=== PATIENT | female | born 1995 | race Caucasian/White ===

== ENCOUNTER → 2024-10-05 12:14 | Emergency (ER) | payer SELFPAY ==
[2024-10-05 12:17] VITALS: BP 143/102
--- NOTE | 2024-10-05 12:18 | ED.GENMED ---
ED Provider Triage
<Lori Lucas [employer] - Last Filed: 10/05/24 12:36>
-
Attestation: A medical screening examination has been initiated by a qualified medical provider. Based on the assessment performed at this time, it has been determined that an emergent medical condition may exist and the patient has been informed
that further medical evaluation and possible additional diagnostic testing may be needed.
HPI: 29-year-old female here for hoarse voice, diarrhea once last night, cough, 'some' shortness of breath and 'tightness' of chest off and on. 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
States she inhaled after Saturday when she was compounding, she developed hoarse voice
Denies tightness in chest at this time.
GENERAL: Alert , in no apparent distress
EYE: No visual abnormalities.
NECK: Trachea midline
ENT: No visible abnormalities., Pharynx normal, voice hoarse
LUNGS: No acute respiratory distress
NEUROLOGICAL: Alert and oriented
SKIN: Skin intact. No visible changes.
MUSCULOSKELETAL: Moving extremities normally
PSYCH: Normal and appropriate interaction.
This is a medical evaluation conducted in person to initiate diagnostic evaluation and provide initial therapeutics. Please see further documentation by the treating clinician.
History of Present Illness
<Lori Lucas [employer] - Last Filed: 10/05/24 12:36>
General
Chief Complaint: Breathing Problem
Time Seen by Provider: 10/05/24 12:17
<Kianna Naranjo DO - Last Filed: 10/05/24 14:19>
History of Present Illness
History of Present Illness:
29-year-old female without significant past medical history presenting for lung irritation and cough. 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 About 5 days ago, she was mixing a powder and
accidentally inhaled some of it. She is unsure with the powder contained, however since this incident, has had cough, throat irritation, and reports some left-sided chest pain upon awakening. She has tried hot tea and other OTC medications for her
symptoms without relief. Denies any significant bradycardia. Denies fever. Does not want to. Denies abdominal pain. Denies any sick contacts. Denies any allergies. Denies any additional acute medical complaints
Phy Exam
<Kianna Naranjo DO - Last Filed: 10/05/24 14:19>
Physical Exam
Physical Exam:
General: Well-appearing, no clinical signs of dehydration, nontoxic and in no acute distress
HEENT: protecting airway
Neck: appears supple
CV: Normal heart rate, regular rhythm, no evidence of cyanosis
Resp: No accessory muscle use, no increased work of breathing, lungs clear to auscultation bilaterally
Abd: Soft and non-distended, no tenderness to palpation
Extremities: No deformities, no swelling
Neuro: alert, no focal neurologic deficit
: deferred
Rectal: deferred
Psych: Normal affect
Skin: Intact
Course
<Lori Lucas, [employer] - Last Filed: 10/05/24 12:36>
Orders/Labs/Results
Orders:
Orders
10/05/24 12:21
EKG- Treatment ONCE
CXR2 [CR Chest - 2 Views ] Urgent
Comment:
Reason For Exam: chest tightness with hoaseness
10/05/24 14:04
EKG [Electrocardiogram (*1)] Urgent
Reason for Study: Chest Pain
EKG- Treatment ONCE
Vital Signs
Initial and Last Documented VS:
Initial Vital Signs
Temp Pulse Resp BP Pulse Ox
98.5 F 96 16 143/102 98
10/05/24 12:17 10/05/24 12:17 10/05/24 12:17 10/05/24 12:17 10/05/24 12:17
Last Documented Vital Signs
Temp Pulse Resp BP Pulse Ox
98.5 F 96 16 143/102 98
10/05/24 12:17 10/05/24 12:17 10/05/24 12:17 10/05/24 12:17 10/05/24 12:17
<Kianna Naranjo DO - Last Filed: 10/05/24 14:19>
Orders/Labs/Results
Orders:
Orders
10/05/24 12:21
EKG- Treatment ONCE
CXR2 [CR Chest - 2 Views ] Urgent
Comment:
Reason For Exam: chest tightness with hoaseness
10/05/24 14:04
EKG [Electrocardiogram (*1)] Urgent
Reason for Study: Chest Pain
EKG- Treatment ONCE
Vital Signs
Initial and Last Documented VS:
Initial Vital Signs
Temp Pulse Resp BP Pulse Ox
98.5 F 96 16 143/102 98
10/05/24 12:17 10/05/24 12:17 10/05/24 12:17 10/05/24 12:17 10/05/24 12:17
Last Documented Vital Signs
Temp Pulse Resp BP Pulse Ox
98.5 F 96 16 143/102 98
10/05/24 12:17 10/05/24 12:17 10/05/24 12:17 10/05/24 12:17 10/05/24 12:17
<Kianna Naranjo DO - Last Filed: 10/05/24 14:19>
MDM/Problems Addressed
MDM/Problems Addressed:
29-year-old female presenting to the emergency department for cough and lung irritation after inhaling an unknown powder at work. Vital signs are normal.
On exam patient is well-appearing, no acute respiratory distress, unremarkable lung exam. No wheezing, no stridor, no focal abnormal lung sounds. Ultimately suspect a mild pneumonitis. Chest x-ray without acute cardiopulmonary disease. Patient
afebrile, nontoxic with lower suspicion for infectious pathology. EKG obtained given report of chest pain in the morning, nonischemic. Patient without cardiac risk factors or concern for ACS. Feel stable for discharge with continued outpatient
supportive therapy. Will prescribe a inhaler and a short course of steroids. Return precautions discussed and patient verbalized understanding
<Kianna Naranjo DO - Last Filed: 10/05/24 14:19>
*EKG
Interpreted by ED Provider?: Yes
EKG Intrepretation Date: 10/05/24
EKG Intrepretation Time: 14:17
Interpretation: normal
Comparison EKG: no comparison EKG present
Heart Rate: 78
Rate: normal
Rhythm: sinus
[place]: normal axis
Interval: normal interval
QRS Pattern: normal QRS
Ischemia: no ischemia
*Critical Care Note
Total Time (30-74mins, 75-104mins- exclusive of procedures): Not Applicable
ED Attending Note
<Lori Lucas [employer] - Last Filed: 10/05/24 12:36>
-
Portions of this chart may have been created with voice recognition software.� Occasional wrong word or��sound alike� substitutions may have occurred due to the inherent limitations of voice recognition software.
Discharge Plan
Interventions
Interventions:
*Risk Screen - Suicide Last Done: 10/05/24 12:17
*General Assessment Last Done: 10/05/24 13:23
*Neglect/Abuse Screening Last Done: 10/05/24 12:17
*ED COVID-19 Vaccine History Last Done: 10/05/24 13:23
ED- Cardiac Assessment Last Done: 10/05/24 13:23
ED- Pulmonary Assessment Last Done: 10/05/24 13:23
Discharge Date and Time
Print Language: SYRIAC
[2024-10-05 14:33] VITALS: BP 112/72
== END | disposition home or self-care (01) ==
LOC: EMR 12:14
PROVIDERS: EMERGENCY PHYSICIAN Student in an Organized Health Care Education/Training Program
DX: J20.9 Acute bronchitis, unspecified (principal)
CPT/HCPCS: 99284; 71046; 93005